=== PATIENT | female | born 1965 | race African-American/Black ===

== ENCOUNTER 2017-07-31 15:23 | Emergency (ER) | payer MEDICAID ==
--- NOTE | 2017-07-31 16:15 | ED Physician Chart ---
ED Chief Complaint/HPI - Patient Information Date Seen:: 07/31/17 Time Seen:: 15:50 Chief Complaint:: left ear congestion History of Present Illness:: Patient describes having left ear congestion for the last 5 days, not left ear pain. Patient's had rhinorrhea and mild cough for last 3 days. Historian:: Patient Review:: Nurse's Note Reviewed ED Review of Systems - Review of Systems General/Constitutional: No fever, No chills Skin: No skin lesions Head: No headache Eyes: No loss of vision ENT: Nasal drainage, Other (left ear congestion) Neck: No neck pain Cardio Vascular: No chest pain, No palpitations Pulmonary: No SOB, Cough GI: No nausea, No vomiting, No diarrhea G/U: No dysuria Musculoskeletal: No bone or joint pain, No muscle pain Endocrine: No polyuria, No polydipsia Psychiatric: No prior psych history, No depression, No anxiety Hematopoietic: No bruising Allergic/Immuno: No urticaria Neurological: No syncope ED Past Medical History - Past Medical History Past Medical History: HTN Family History: Diabetes Melitus Social History: Smoker, Other (occasional alcohol) Surgical History: None Psychiatricy History: None Medication: Reviewed Family Medical History - Family Member Mother History Unknown: Yes Ethnicity: Non- Living Status: Unknown ED Physical Exam - Physical Examination General/Constitutional: Awake, Well-developed, well-nourished, Alert, No distress Head: Atraumatic Eyes: Lids, conjuctiva normal, PERRL Skin: Nl inspection, No rash, No skin lesions, No ecchymosis, Well hydrated, No lymphadenopathy ENMT: External ears, nose nl Other ENMT comments:: Right tympanic membrane clear; left ceruminosis Neck: No nuchal rigidity Respiratory: Nl effort/Exclusion, Clear to Auscultation, No Wheeze/Rhonchi/Rales Cardio Vascular: RRR, No murmur, gallop, rubs GI: No tenderness/rebounding/guarding : No CVA tenderness Extremities: Normal digits & nails Neuro/Psych: No focal deficits Misc: Normal back ED Assessment - Assessment General Assessment: Half peroxide half warm water so that the solution was about body temperature was placed in the patient's left ear with her laying on her right side. After about one half hour the left ear was irrigated with about body temperature water using an 18 catheter on a 10 mL syringe. The catheter was cut off to approximately half its original length. After irrigation some cerumen remained but it was possible to see the tympanic membrane through two holes in the cerumen ED Septic Shock - . Is Septic Shock (SBP<90, OR Lactate>4 mmol\L) present?: No ED Reassessment (Disposition) - Reassessment Reassessment Condition:: Improved - Diagnosis Diagnosis:: Left ceruminosis - Aftercare/Follow up Instructions Aftercare/Follow-Up Instructions:: Refer to Discharge Instructions - Patient Disposition Discharge/Transfer:: Home Condition at Disposition:: Stable, Improved
== END 2017-07-31 16:45 | disposition home or self-care (01) ==
LOC: ER 15:23
DX: H61.22 Impacted cerumen, left ear (principal); I10 Essential (primary) hypertension